=== PATIENT | female | born 1970 | race Caucasian/White ===

== ENCOUNTER → 2019-03-05 | Outpatient (CLI) | payer BC | LOC: MC.RAD 02-13 09:45 | DX: Z12.31 Encounter for screening mammogram for malignant neoplasm of breast (principal); N63.11 Unspecified lump in the right breast, upper outer quadrant ==

== ENCOUNTER → 2019-03-08 | Outpatient (CLI) | payer BC | LOC: MC.RAD 10:00 | DX: Z12.31 Encounter for screening mammogram for malignant neoplasm of breast (principal); R92.0 Mammographic microcalcification found on diagnostic imaging of breast ==

== ENCOUNTER → 2019-03-13 | Outpatient (CLI) | payer BC | LOC: MC.RAD 08:23 | DX: N63.11 Unspecified lump in the right breast, upper outer quadrant (principal); R92.8 Other abnormal and inconclusive findings on diagnostic imaging of breast ==

== ENCOUNTER → 2020-09-02 | Outpatient (CLI) | payer OTHER | LOC: MC.RAD 08:58 | DX: Z12.31 Encounter for screening mammogram for malignant neoplasm of breast (principal); R92.1 Mammographic calcification found on diagnostic imaging of breast; N63.20 Unspecified lump in the left breast, unspecified quadrant; N63.10 Unspecified lump in the right breast, unspecified quadrant; Z98.82 Breast implant status ==

== ENCOUNTER → 2020-09-05 | Outpatient (CLI) | payer OTHER | LOC: MC.RAD 13:56 | DX: R92.1 Mammographic calcification found on diagnostic imaging of breast (principal) ==

== ENCOUNTER 2020-10-02 08:24 | Day surgery (SDC) | payer OTHER ==
[~2020-10-02] VITALS: Ht 165.1 cm; Wt 68.9 kg
[2020-10-02 09:46] VITALS: BP 132/87; PULSE 77; TEMP 98.3
[2020-10-02 12:44] VITALS: BP 114/68; PULSE 71
[2020-10-02] MEDS ORDERED: ULTRAM 50MG TAB50 MG PO (12:44)
--- NOTE | 2020-10-02 12:44 | NUR ---
Patient returns to room 5 per cart from surgery accompanied by Patti FAULKNER and Goivnd BURLESON. Patient is awake and alert. Temp 96.9 and warm blankets on. Room air sats 98%. Stone set dressing dry on the right breast incision. Siderails up x2 and call light in reach. Patient denies pain or nausea.
[2020-10-02 12:59] VITALS: BP 121/81; PULSE 62
--- NOTE | 2020-10-02 12:59 | NUR ---
Resting and denies pain or nausea.
--- NOTE | 2020-10-02 13:09 | NUR ---
Assisted up to the bathroom. Voids and returns to room. Denies pain or nausea. Eating applesauce and drinking water.
[2020-10-02 13:14] VITALS: BP 129/69; PULSE 56
--- NOTE | 2020-10-02 13:14 | NUR ---
Continues to deny pain or nausea. Tolerates snack and fluids.
[2020-10-02 13:29] VITALS: BP 131/66; PULSE 59
--- NOTE | 2020-10-02 13:29 | NUR ---
Continues to deny pain or nausea. Expresses desire to go home.
--- NOTE | 2020-10-02 13:43 | NUR ---
IV discontinued and site is free of redness or swelling. Patient dresses self.
--- NOTE | 2020-10-02 14:00 | NUR ---
Dismissal instructions given and voices understanding of surgery. Dismissal instructions given and voices understanding of these. Patient dismissed to home driven by spouse and taken to the front door per wheelchair and assisted into vehicle.
== END 2020-10-02 14:00 | disposition home or self-care (01) ==
LOC: SDCO 08:24
DX: D05.01 Lobular carcinoma in situ of right breast (principal); D23.9 Other benign neoplasm of skin, unspecified; Z90.710 Acquired absence of both cervix and uterus; F17.210 Nicotine dependence, cigarettes, uncomplicated
CPT/HCPCS: J0690; J1100; J1885; J2250; J2405; J2704; J3010; J7120

== ENCOUNTER → 2021-09-03 | Outpatient (CLI) | payer OTHER ==
[~2021-09-03] MED LIST: ULTRAM 50MG TAB50 MG PO
== END ==
LOC: MC.RAD 10:52
DX: Z85.3 Personal history of malignant neoplasm of breast (principal); Z98.890 Other specified postprocedural states; Z98.82 Breast implant status